=== PATIENT | female | born 1985 | race Two or more races ===

== ENCOUNTER 2017-11-08 18:20 | Emergency (ER) | payer MEDICAID ==
[2017-11-08] MEDS: ACETAMINOPHEN 500 MG TABLET PO (19:00)
== END 2017-11-08 20:05 | disposition home or self-care (01) ==
LOC: ER 20:05
DX: S00.93XA Contusion of unspecified part of head, initial encounter (principal); I10 Essential (primary) hypertension; Y00.XXXA Assault by blunt object, initial encounter; Y93.89 Activity, other specified; Y99.8 Other external cause status; Y92.512 Supermarket, store or market as the place of occurrence of the external cause
CPT/HCPCS: 70450; 99284-25